=== PATIENT | female | born 1960 | race Caucasian/White ===

== ENCOUNTER 2016-03-22 12:21 | Emergency (ER) | payer BC ==
[~2016-03-22] VITALS: Ht 157.5 cm; Wt 70.2 kg
[2016-03-22 12:26] VITALS: TEMP 37; Ht 157.5 cm; Wt 70.2 kg
[2016-03-22] MEDS ORDERED: ATOR-22 PO (12:42)
[2016-03-22] MEDS ORDERED: LEVO75TA5 PO (12:42)
[2016-03-22] MEDS ORDERED: FOLI1TAB7 PO (12:42)
[2016-03-22] MEDS ORDERED: RANI150T3 PO (12:42)
[2016-03-22] MEDS ORDERED: CYAN10005 PO (12:42)
[2016-03-22] MEDS ORDERED: BIOT10TA2 PO (12:42)
[2016-03-22] MEDS ORDERED: OMEP40CA41 PO (12:42)
[2016-03-22] MEDS ORDERED: MELA1TAB5 PO (12:42)
[2016-03-22] MEDS ORDERED: BUPR100T5 PO (12:42)
--- NOTE | 2016-03-22 13:31 | EMERGENCY ROOM VISIT NOTE ---
History Report prepared by Niki: Karissa Alvarado Under the Supervision of: Dr. Edison Gee M.D. First contact with patient: 13:22 Chief Complaint: NEURO SYMPTOMS Stated Complaint: ARMS NUMB/HEAVY Nursing Triage Summary: pt co bilateral upper weakness/numbness pt states every time this happens my neck hurts also History of Present Illness The patient is a 55 year old female who presents to the Emergency Room with complaints of an episode of arm numbness occurring just prior to arrival. The patient states that her both of her arms will become numb and tingling. This then progresses to be weakness and heaviness. She states that the episode does not last long. After the episode she experienced neck pain and muscle aches. Patient has had this happened two other times, the first being in January. Patient denies rash. She notes that she does have acid reflux and that this has been acting up more recently. Source of History: patient Onset: just PODIATRY ASSISTANT Position: arm (bilateral) Quality: tingling, numbness Timing: other (episode) Associated Symptoms: + neck pain, + weakness Note: Patient is experiencing muscle aches. Review of Systems See HPI for pertinent positives & negatives. A total of 10 systems reviewed and were otherwise negative. Past Medical & Surgical Medical Problems: (1) Acid reflux Family History Cancer Diabetes mellitus Heart disease Hypertension Social History Smoking Status: Former Smoker Marital Status: Housing Status: lives with family Occupation Status: employed Current/Historical Medications Scheduled Atorvastatin (Lipitor), 20 MG PO DAILY Biotin (Biotin), 1,000 MCG PO DAILY Bupropion Hcl (Wellbutrin Sr), 1 TAB PO QAM Cyanocobalamin (Vitamin B-12), 1,000 MCG PO DAILY Folic Acid (Folvite), 1 MG PO DAILY Levothyroxine Sodium (Levothyroxine Sodium), 1 TAB PO DAILY Melatonin (Kp Melatonin), Unknown Dose PO HS Omeprazole (Prilosec), 40 MG PO DAILY Ranitidine Hcl (Zantac), 150 MG PO HS Allergies Coded Allergies: Iodinated Diagnostic Agents (Verified Allergy, Unknown, ANAPHYLAXIS, ) Iodine (Verified Allergy, Unknown, ANAPHYLAXIS, 03/22/16) Uncoded Nonscreenable Allergen (Verified Allergy, Unknown, MUSSELS- FACIAL SWELLING, 03/22/16) Physical Exam Vital Signs Date Time Temp Pulse Resp B/P Pulse Ox O2 Delivery O2 Flow Rate FiO2 03/22/16 14:55 59 22 108/73 96 Room Air 03/22/16 13:57 57 03/22/16 13:55 96 Room Air 03/22/16 13:55 Room Air 03/22/16 13:52 61 18 124/71 96 Room Air 03/22/16 12:26 37.0 121 18 120/75 97 Room Air Physical Exam GENERAL: Patient is a healthy-appearing well-nourished HEAD: Normocephalic atraumatic EYES: Ocular movements intact pupils equal and react to light OROPHARYNX mucous membranes are moist no exudates present no erythema or edema present NECK: Supple no nuchal rigidity CHEST: Good equal expansion LUNGS: Clear and equal to auscultation CARDIAC: Normal S1 and S2 ABDOMEN: Soft nontender no guarding BACK: No CVA tenderness EXTREMITIES: No pain upon palpation normal muscle strength in all groups no clubbing cyanosis or edema NEURO: Patient is following commands is answering questions appropriately. Alert and oriented x3 Cranial Nerves 2-12 grossly intact Medical Decision & Procedures ER Provider Diagnostic Interpretation: X-ray results as stated below per interpretation by me and the radiologist: CHEST ONE VIEW PORTABLE CLINICAL HISTORY: Chest pain. COMPARISON STUDY: No previous studies for comparison. FINDINGS: Lung volumes are normal. No consolidation is identified. Minimal left basilar opacity may reflect atelectasis. There is no pneumothorax or pleural effusion. There is no evidence of pulmonary edema. Cardiomediastinal silhouette is normal. There is mild S-shaped curvature of the thoracic spine. IMPRESSION: No acute cardiopulmonary findings. Electronically signed by: Kehinde Baer M.D. 03/22/2016 2:06 PM Dictated Date/Time: 03/22/2016 2:05 PM Laboratory Results 03/22/16 13:45 Red Blood Count 4.40, Mean Corpuscular Volume 93.0, Mean Corpuscular Hemoglobin 30.9, Mean Corpuscular Hemoglobin Concent 33.3, Mean Platelet Volume 9.7, Neutrophils (%) (Auto) 43.8, Lymphocytes (%) (Auto) 42.5, Monocytes (%) (Auto) 9.2, Eosinophils (%) (Auto) 4.3, Basophils (%) (Auto) 0.2, Neutrophils # (Auto) 1.96, Lymphocytes # (Auto) 1.90, Monocytes # (Auto) 0.41, Eosinophils # (Auto) 0.19, Basophils # (Auto) 0.01 03/22/16 13:45 Test 03/22/16 13:45 03/22/16 13:56 03/22/16 13:57 White Blood Count 4.47 K/uL (4.8-10.8) Red Blood Count 4.40 M/uL (4.2-5.4) Hemoglobin 13.6 g/dL (12.0-16.0) Hematocrit 40.9 % (37-47) Mean Corpuscular Volume 93.0 fL (80-100) Mean Corpuscular Hemoglobin 30.9 pg (25-34) Mean Corpuscular Hemoglobin Concent 33.3 g/dl (32-36) Platelet Count 237 K/uL (130-400) Mean Platelet Volume 9.7 fL (7.4-10.4) Neutrophils (%) (Auto) 43.8 % Lymphocytes (%) (Auto) 42.5 % Monocytes (%) (Auto) 9.2 % Eosinophils (%) (Auto) 4.3 % Basophils (%) (Auto) 0.2 % Neutrophils # (Auto) 1.96 K/uL (1.4-6.5) Lymphocytes # (Auto) 1.90 K/uL (1.2-3.4) Monocytes # (Auto) 0.41 K/uL (0.11-0.59) Eosinophils # (Auto) 0.19 K/uL (0-0.5) Basophils # (Auto) 0.01 K/uL (0-0.2) RDW Standard Deviation 45.7 fL (36.4-46.3) RDW Coefficient of Variation 13.3 % (11.5-14.5) Immature Granulocyte % (Auto) 0.0 % Immature Granulocyte # (Auto) 0.00 K/uL (0.00-0.02) Est Creatinine Clear Calc Drug Dose 52.4 ml/min Estimated GFR () 65.0 Estimated GFR (Non- 56.1 BUN/Creatinine Ratio 15.9 (10-20) Calcium Level 8.8 mg/dl (8.5-10.1) Total Bilirubin 0.8 mg/dl (0.2-1) Direct Bilirubin 0.2 mg/dl (0-0.2) Aspartate Amino Transf (AST/SGOT) 16 U/L (15-37) Alanine Aminotransferase (ALT/SGPT) 19 U/L (12-78) Alkaline Phosphatase 137 U/L (45-117) Total Creatine Kinase 156 U/L (26-192) Creatine Kinase MB 1.6 ng/ml (0.5-3.6) Creatine Kinase MB Ratio 1.0 (0-3.0) Troponin I < 0.015 ng/ml (0-0.045) Total Protein 7.5 gm/dl (6.4-8.2) Albumin 4.0 gm/dl (3.4-5.0) Lipase 207 U/L (73-393) Lyme Disease IgG Antibody NEG (NEG) Lyme Disease IgM Antibody NEG (NEG) Bedside D-Dimer 132 ng/mlFEU (0-450) Bedside Hemoglobin 14.3 g/dl (12.0-16.0) Bedside Hematocrit 42 % (37-47) Bedside Sodium 142 mEq/L (135-144) Bedside Potassium 4.1 mEq/L (3.3-5.0) Bedside Chloride 104 mEq/L (101-112) Bedside Total CO2 24 mEq/l (24-31) Anion Gap 18.0 mmol/L (16-25) Bedside Blood Urea Nitrogen 19 mg/dl (7-18) Bedside Creatinine 1.0 mg/dl (0.6-1.3) Bedside Glucose (other) 93 mg/dl (70-99) Bedside Ionized Calcium (Belle) 1.16 mmol/l (1.12-1.32) Labs reviewed by ED physician. ECG Indication: other (arm numbness) Rate (beats per minute): 57 Rhythm: sinus bradycardia Findings: no acute ischemic change, no ectopy ED Course 1325: Past medical records reviewed. The patient was evaluated in room A4. A complete history and physical examination was performed. 1455: Upon reexamination the patient is hemodynamically stable. I discussed results and treatment plan with the patient. She verbalizes agreement and understanding. The patient is ready for discharge. Medical Decision The patient is a 55 year old female who presents to the ED with complaints of arm numbness. Differential diagnosis: Etiologies such as cardiac ischemia, aortic dissection, pulmonary embolism, pneumonia, pneumothorax, musculoskeletal, infections, pericarditis, myocarditis , esophageal rupture, gastrointestinal, as well as others were entertained. This is a 55-year-old female that presents emergency department complaining of atypical symptoms. The patient reports she is had several episodes since January where her arms feel extremely heavy and she suffers from neck pain. She has no evidence of cardiac ischemia as she does not have an elevation in her troponin and her EKG is normal. In addition she has a normal d-dimer and a normal Lyme test. She has no evidence of pneumonia pneumothorax or infection on her laboratory work. Patient is pain-free at this time and I feels well enough to be discharged home for follow-up with cardiology. Patient was in agreement with the treatment plan. Impression Primary Impression: Near syncope Scribe Attestation The scribe's documentation has been prepared under my direction and personally reviewed by me in its entirety. I confirm that the note above accurately reflects all work, treatment, procedures, and medical decision making performed by me. Departure Information Dispostion Home / Self-Care Referrals No Doctor, Assigned (PCP) Forms HOME CARE DOCUMENTATION FORM, IMPORTANT VISIT INFORMATION, WORK / SCHOOL INSTRUCTIONS Patient Instructions ED Near Syncope Unkn, [facility], Syncope Causes Additional Instructions Follow up with DR Ding's office You have been examined and treated today on an emergency basis only. This is not a substitute for, or an effort to provide, complete comprehensive medical care. It is impossible to recognize and treat all injuries or illnesses in a single emergency department visit. It is therefore important that you follow up closely with Dr Iniguez. Call as soon as possible for an appointment. Thank you for your time and consideration. I look forward to speaking with you again soon. Please don't hesitate to call us if you have any questions.
[2016-03-22 13:55] VITALS: O2SAT 96
[2016-03-22 14:00] LABS: BASO % 0.2 %; BASO ABS # 0.01 K/uL (0-0.2); COMPLETE YES; EOS % 4.3 %; HEMATOCRIT 40.9 % (37-47); LYMPH % 42.5 %; MEAN CORPUSCULAR HEMOGLOBIN 30.9 pg (25-34); MEAN CORPUSCULAR HGB CONC 33.3 g/dl (32-36); MEAN PLATELET VOLUME 9.7 fL (7.4-10.4); MONO % 9.2 %; NEUT % 43.8 %; PLATELET COUNT 237 K/uL (130-400); WHITE BLOOD COUNT 4.47 K/uL (4.8-10.8)
--- NOTE | 2016-03-22 14:07 | DIAGNOSTIC IMAGING REPORT ---
CHEST ONE VIEW PORTABLE CLINICAL HISTORY: Chest pain. COMPARISON STUDY: No previous studies for comparison. FINDINGS: Lung volumes are normal. No consolidation is identified. Minimal left basilar opacity may reflect atelectasis. There is no pneumothorax or pleural effusion. There is no evidence of pulmonary edema. Cardiomediastinal silhouette is normal. There is mild S-shaped curvature of the thoracic spine. IMPRESSION: No acute cardiopulmonary findings. Electronically signed by: Kehinde Baer M.D. 03/22/2016 2:06 PM Dictated Date/Time: 03/22/2016 2:05 PM
[2016-03-22 14:17] LABS: ALT/SGPT 19 U/L (12-78); AST/SGOT 16 U/L (15-37); BLOOD UREA NITROGEN 17 mg/dl (7-18); BUN/CREATININE RATIO 15.9 (10-20); CALCIUM 8.8 mg/dl (8.5-10.1); CARBON DIOXIDE 28 mmol/L (21-32); CHLORIDE 108 mmol/L (98-107); GLUCOSE 88 mg/dl (70-99); POTASSIUM 4.1 mmol/L (3.5-5.1); SODIUM 145 mmol/L (136-145)
[2016-03-22 14:23] LABS: ALKALINE PHOSPHATASE 137 U/L (45-117)
[2016-03-22 14:32] LABS: ISTAT HEMOGLOBIN 14.3 g/dl (12.0-16.0); ISTAT IONIZED CALCIUM 1.16 mmol/l (1.12-1.32)
[2016-03-22 14:54] LABS: LYME DISEASE AB IGG NEG (NEG); LYME DISEASE AB IGM NEG (NEG)
[2016-03-22 14:55] VITALS: BP 108/73; PULSE 59; O2SAT 96
== END 2016-03-22 15:05 | disposition home or self-care (01) ==
LOC: C.EDB 12:22 → C.EDA 15:05
DX: R55 Syncope and collapse (principal); K21.9 Gastro-esophageal reflux disease without esophagitis; Z79.899 Other long term (current) drug therapy

== ENCOUNTER → 2017-02-16 | Outpatient (CLI) | payer BC ==
[~2017-02-16] MED LIST: ATOR-22 PO; BIOT10TA2 PO; BUPR100T5 PO; CYAN10005 PO; FOLI1TAB8 PO; LEVO75TA5 PO; MELA1TAB5 PO; OMEP40CA41 PO; RANI150T3 PO
[2017-02-16 14:19] LABS: ALBUMIN 3.9 gm/dl (3.4-5.0); ALKALINE PHOSPHATASE 98 U/L (45-117); ALT/SGPT 23 U/L (12-78); AST/SGOT 16 U/L (15-37); BLOOD UREA NITROGEN 29 mg/dl (7-18); CALCIUM 8.9 mg/dl (8.5-10.1); CARBON DIOXIDE 25 mmol/L (21-32); CHOLESTEROL 135 mg/dl (0-200); CREATININE 1.05 mg/dl (0.60-1.20); GLUCOSE,FASTING 98 mg/dl (70-99); LDL CHOLESTEROL CALCULATED 71 mg/dl; POTASSIUM 3.8 mmol/L (3.5-5.1); SODIUM 139 mmol/L (136-145); TOTAL PROTEIN 7.4 gm/dl (6.4-8.2)
== END | disposition home or self-care (01) ==
LOC: C.LABPBG 08:26
PROVIDERS: ATTEND Physician Assistant
DX: Z00.00 Encounter for general adult medical examination without abnormal findings (principal); E03.9 Hypothyroidism, unspecified; E78.5 Hyperlipidemia, unspecified

== ENCOUNTER 2024-12-16 14:22 | Inpatient (IN) ==
--- NOTE | 2024-12-16 15:04 | Emergency Department Note ---
Impression & Plan Acute pyelitis, Lower urinary tract symptoms (LUTS), Acute flank pain ED Provider Note NAME: NAVIN DURANT AGE: 64 SEX: F : 1960 ARRIVES VIA: Walk-In INFORMANT: Patient, ED PROVIDER(S): Khari Dove DO CHIEF COMPLAINT: urinary symptoms, flank pain HPI: This is a 64-year-old female with the PMHx of hypertension, hyperlipidemia, hypothyroidism, anxiety, esophageal reflux, and osteoarthritis presenting to [facility] for further evaluation of ongoing urinary symptoms. Patient is accompanied by her who provide additional history. Patient states that she has had ongoing urinary symptoms despite 3 rounds of antibiotics. She is scheduled for a cystoscopy with urology this week. Patient reports over the last day or so she has had worsening left-sided flank pain. Patient states that her urine cultures have not grown any significant bacteria. They deny fever or chills. No cough or congestion. Denies chest pain or palpitations. No shortness of breath. They deny abdominal pain, nausea and vomiting. No recent changes in bowel movements. Patient denies recent changes in medications or OTC supplements. Patient offers no other complaints, today. ADDITIONAL HISTORY OBTAINED: Per HPI Chronic Medical/Social Conditions Affecting Care: Per HPI PAST MEDICAL HISTORY: See Below PAST SURGICAL HISTORY: See Below FAMILY HISTORY: See Below SOCIAL HISTORY: See Below HOME MEDICATIONS: See Below ALLERGIES: See Below VITALS: See Below PHYSICAL EXAMINATION: GENERAL: Sitting up in bed, alert, well appearing, well nourished, no distress, non-toxic EYE EXAM: normal conjunctiva. OROPHARYNX: no exudate, no erythema, lips, buccal mucosa, and tongue normal and mucous membranes are dry NECK: supple, no nuchal rigidity, no adenopathy, non-tender LUNGS: Clear to auscultation. Normal chest wall mechanics HEART: no murmurs, regular rate, regular rhythm ABDOMEN: abdomen soft,TTP in the LUQ, no masses, no rebound or guarding. BACK: Back is symmetrical on inspection and there is no deformity, no midline tenderness. L CVA tenderness. SKIN: no rashes and no bruising UPPER EXTREMITIES: upper extremities are grossly normal. LOWER EXTREMITIES: No pitting edema. NEURO EXAM: Normal sensorium, GCS 15, normal speech, no gross weakness of arms, no gross weakness of legs. MEDICAL DECISION MAKING: Differential diagnoses includes but not limited to acute cystitis, pyelonephritis, nephrolithiasis, hydroureteronephrosis, malignancy, interstitial nephritis In summary, this is a 64 year old female who presented with urinary symptoms. Differential as above. Nursing notes and pertinent past medical records reviewed. Vital signs reviewed and the patient is afebrile and HDS. History and presentation revealed ongoing UTI symptoms. Recent antibiotics for 3 different rounds with ongoing symptoms. She now has L sided flank pain. Physical examination revealed as above. As a result of my initial evaluation, IV access was established and the patient was placed on CCRM. Therapeutics ordered include IVFR and Toradol. I discussed further with the patient regarding her contrast allergy. She states this was from the iodine and she had 3 hives total. She states that she has been able to tolerate contrast in the past without any issue. Patient is comfortable with IV Benadryl prior to CT scan and proceeding with contrast study. She is felt to be very low risk for anaphylaxis secondary to contrast media. Diagnostics interpreted by me include EKG and cardiac monitoring as listed below: -Cardiac Monitoring: An order was placed for continuous cardiac monitoring. The monitor shows a rate of 50-70s with regular rhythm. -ECG: Normal sinus rhythm at a ventricular rate of [address] segment changes to suggest STEMI. Patient completed laboratory studies and imaging. Results independently interpreted by me are no leukocytosis or anemia. There is no significant electrolyte derangements or significant kidney dysfunction from baseline. Slight increased BUN:Cr. No changes in LFTs. Procalcitonin is normal. Urinalysis shows leukocyte esterase and pyuria. No bacteriuria. Patient does not have nitrates. [place] less likely to be a UTI. Would also consider interstitial nephritis. The patient was managed with IV fluid resuscitation and Toradol. Patient CT did result in the emergency department showing possible infection of the ureter. Feel are that the patient has failed multiple courses of antibiotics as an outpatient at this point. Will provide IV ceftriaxone and admit the patient to the hospital. She required additional pain medications including morphine while in the ED. Ultimately, the decision was made to admit the patient for bilateral pyelitis. I discussed the case with the hospitalist service via telephone/TigerText and they are agreeable to admit the patient to their services. Based on the above, including the patient's age, coexisting illnesses, labs, imaging, and exam findings the decision to treat as an inpatient. I discussed the patient with the hospitalist team who recommended admission to their services. They received the medications, treatments, interventions indicated above and their condition remained stable. I discussed my findings with the patient and their family and they understand and agree with the treatment plan. All patient / family questions were answered to their satisfaction. Consults/Care Managements Discussions: Per MDM ER treatment provided: See above Procedures:none Critical Care: None The chart was completed utilizing [employer] voice recognition software. Grammatical errors, random word insertions, pronoun errors, and incomplete sentences are an occasional consequence of this system due to software limitations, ambient noise, and hardware issues. Any formal questions or concerns about the content, text, or information contained within the body of this dictation should be directly addressed to the physician for clarification. Past Med/Surg History Problem List (Updated 12/17/24 @ 00:15 by Khari Dove DO) Acute flank pain (Acute) Lower urinary tract symptoms (LUTS) (Acute) Acute pyelitis (Acute) Recurrent UTI (urinary tract infection) Ureteritis due to infection Hematuria Osteoarthritis Rupture of right biceps tendon Rupture of right rotator cuff Bilateral occipital neuralgia History of stress fracture (~03/17/21) Stress fracture of tibia Spinal stenosis of cervical region with radiculopathy Degenerative disc disease, cervical Prediabetes Chronic constipation Gastritis GERD (gastroesophageal reflux disease) Rosacea Degenerative joint disease (DJD) of lumbar spine Spondylolisthesis of lumbar region Acne Dyslipidemia Hypothyroidism Anxiety disorder Medical History (Updated 12/17/24 @ 00:15 by Khari Dove DO) Hydradenitis Fecal incontinence Degenerative joint disease (DJD) of lumbar spine Rosacea History of COVID-29 MAR 2020> HEADACHE, LOSS OF SMELL, ALL OVER PAIN > NOT HOSPITALIZED > WAS NOT TESTED, TESTED POSITIVE, SAID TO ASSUME PT WAS POSITIVE DVT (deep venous thrombosis) 1983 > FROM SNAKE BITE > LEG Surgical History History of tooth extraction History of colonoscopy H/O lymph node excision AGE 14 LEFT SIDE NECK History of oophorectomy, unilateral H/O hysterectomy with unilateral oophorectomy S/P breast biopsy, left benign S/P cholecystectomy H/O ovarian cystectomy Family History Father Myocardial infarction, Onset Age: 57 Coronary heart disease Mother Hypertension Uncle Colorectal cancer Grandfather (Paternal) Stomach cancer Grandfather (Maternal) Bladder cancer Aunt Breast cancer Denies family history of Ovarian cancer Prostate cancer Social History Smoking Status: Never smoker Tobacco Type: Cigarettes Age Started Using Tobacco: 29; Age Quit Using Tobacco: 51; packs per day: 1; Second Hand Exposure: No; Do You Dip or Chew Tobacco: No; Hx Alcohol Use: Yes Alcohol type: beer Alcohol Intake Frequency: Monthly or Less Hx Substance Use: No Preferred Language: Sami Communication Ability: Effective Visual Impairment: No Limitations Hearing Ability: Normal First Aid Director Required: No Beliefs That Will Affect Care: None marital status: Current Living Situation: Spouse current occupational status: retired How many Children do You have: 2 How many Children do You have Comment: 2 boys Feels Safe at Home: Yes Childhood Exposure to Second-Hand Smoke: No Diet: low carbohydrate Diet Comment: low carb caffeine: Yes during the past year weight has: remained stable Dental Care, Regularly: Yes Physical Activity Frequency: 3-4 Times per Week Physical Activity Frequency Comment: walking Seatbelt Use: always Sunscreen Use: Yes Assistive Devices: Glasses Allergies Allergies Allergy/AdvReac Type Severity Reaction Status Date / Time Tetanus Vaccines and Toxoid Allergy Severe Anaphylaxis Verified 12/16/24 16:54 Iodinated Contrast Media Allergy Unknown ANAPHYLAXIS Verified 12/16/24 16:54 iodine Allergy Unknown ANAPHYLAXIS Verified 12/16/24 16:54 clams Allergy Hives Verified 12/16/24 16:54 Home Meds Home Medications Medication Instructions Recorded Confirmed cetirizine 10 mg tablet 10 mg PO QAM 12/05/20 12/16/24 escitalopram oxalate 10 mg tablet 10 mg PO QPM 12/16/24 12/16/24 famotidine 20 mg tablet 20 mg PO QPM 12/16/24 12/16/24 linaclotide 72 mcg capsule 72 mcg PO QPM 12/16/24 12/16/24 (Linzess) Previous Rx's Medication Instructions Recorded metformin 500 mg tablet,extended 500 mg PO BID #180 tabs 02/18/24 release 24 hr clindamycin phosphate 1 % topical 1 applic topical BID PRN lesion 05/11/24 gel #60 grams folic acid 1 mg tablet 1 mg PO QAM #90 tabs 07/04/24 pantoprazole 40 mg tablet,delayed 40 mg PO DAILY GERD #90 tabs 07/13/24 release (Protonix) levothyroxine 88 mcg tablet 88 mcg PO DAILY #90 tabs 10/17/24 atorvastatin 20 mg tablet 20 mg PO QPM #90 tabs 11/10/24 spironolactone 100 mg tablet 100 mg PO DAILY #90 tabs 12/15/24 Results & Data (ED) Vital Signs Vital Signs - 24 hr 12/16/24 14:24 12/16/24 15:02 12/16/24 15:30 Temperature 36.4 C L Temperature Source Temporal Artery Scan Pulse Rate 81 81 Pulse Rate [Apical] 60 Pulse Rate from SpO2 Sensor Pulse Rhythm Regular Pulse Rhythm [Apical] Pulse Strength [Apical] Respiratory Rate 18 18 18 Respiratory Effort / Characteristics Non-Labored Spontaneous Respiratory Depth Normal Blood Pressure 127/78 Blood Pressure [Right Arm] 125/78 Blood Pressure Mean 94 Blood Pressure Mean [Right Arm] 93 Blood Pressure Position [Right Arm] Sitting Pulse Oximetry 97 97 99 Oxygen Delivery Method Room Air Room Air Room Air Sepsis Recent Fever Within 48 Hours No Sepsis New/Unexplained Change in Mental Status N/A Sepsis Action Taken by Nursing No Action Required 12/16/24 15:46 12/16/24 17:00 12/16/24 18:00 Temperature Temperature Source Pulse Rate 64 Pulse Rate [Apical] 58 L Pulse Rate from SpO2 Sensor Pulse Rhythm Pulse Rhythm [Apical] Pulse Strength [Apical] Respiratory Rate 18 Respiratory Effort / Characteristics Non-Labored Spontaneous Respiratory Depth Normal Blood Pressure 112/67 Blood Pressure [Right Arm] 115/81 Blood Pressure Mean 82 Blood Pressure Mean [Right Arm] 92 Blood Pressure Position [Right Arm] Lying Pulse Oximetry 99 Oxygen Delivery Method Room Air Sepsis Recent Fever Within 48 Hours Sepsis New/Unexplained Change in Mental Status Sepsis Action Taken by Nursing 12/16/24 18:00 12/16/24 18:00 12/16/24 18:00 Temperature Temperature Source Pulse Rate Pulse Rate [Apical] Pulse Rate from SpO2 Sensor Pulse Rhythm Pulse Rhythm [Apical] Pulse Strength [Apical] Respiratory Rate Respiratory Effort / Characteristics Respiratory Depth Blood Pressure 112/67 112/67 112/67 Blood Pressure [Right Arm] Blood Pressure Mean 82 82 82 Blood Pressure Mean [Right Arm] Blood Pressure Position [Right Arm] Pulse Oximetry Oxygen Delivery Method Sepsis Recent Fever Within 48 Hours Sepsis New/Unexplained Change in Mental Status Sepsis Action Taken by Nursing 12/16/24 18:00 12/16/24 18:12 12/16/24 18:21 Temperature Temperature Source Pulse Rate 60 60 64 Pulse Rate [Apical] Pulse Rate from SpO2 Sensor 59 L 59 L 64 Pulse Rhythm Pulse Rhythm [Apical] Pulse Strength [Apical] Respiratory Rate 12 16 21 Respiratory Effort / Characteristics Respiratory Depth Blood Pressure Blood Pressure [Right Arm] Blood Pressure Mean Blood Pressure Mean [Right Arm] Blood Pressure Position [Right Arm] Pulse Oximetry 98 98 96 Oxygen Delivery Method Sepsis Recent Fever Within 48 Hours Sepsis New/Unexplained Change in Mental Status Sepsis Action Taken by Nursing 12/16/24 18:30 12/16/24 18:30 12/16/24 18:30 Temperature Temperature Source Pulse Rate 60 Pulse Rate [Apical] Pulse Rate from SpO2 Sensor 59 L Pulse Rhythm Pulse Rhythm [Apical] Pulse Strength [Apical] Respiratory Rate 12 Respiratory Effort / Characteristics Respiratory Depth Blood Pressure 114/68 114/68 Blood Pressure [Right Arm] Blood Pressure Mean 85 85 Blood Pressure Mean [Right Arm] Blood Pressure Position [Right Arm] Pulse Oximetry 97 Oxygen Delivery Method Sepsis Recent Fever Within 48 Hours Sepsis New/Unexplained Change in Mental Status Sepsis Action Taken by Nursing 12/16/24 18:30 12/16/24 18:30 12/16/24 18:33 Temperature Temperature Source Pulse Rate Pulse Rate [Apical] 61 Pulse Rate from SpO2 Sensor Pulse Rhythm Pulse Rhythm [Apical] Pulse Strength [Apical] Respiratory Rate 18 Respiratory Effort / Characteristics Non-Labored Spontaneous Respiratory Depth Normal Blood Pressure 114/68 114/68 Blood Pressure [Right Arm] 114/68 Blood Pressure Mean 85 85 Blood Pressure Mean [Right Arm] 83 Blood Pressure Position [Right Arm] Lying Pulse Oximetry 99 Oxygen Delivery Method Room Air Sepsis Recent Fever Within 48 Hours Sepsis New/Unexplained Change in Mental Status Sepsis Action Taken by Nursing 12/16/24 18:42 12/16/24 18:51 12/16/24 19:00 Temperature Temperature Source Pulse Rate 59 L 59 L Pulse Rate [Apical] Pulse Rate from SpO2 Sensor 59 L 59 L Pulse Rhythm Pulse Rhythm [Apical] Pulse Strength [Apical] Respiratory Rate 23 34 H Respiratory Effort / Characteristics Respiratory Depth Blood Pressure 115/70 Blood Pressure [Right Arm] Blood Pressure Mean 87 Blood Pressure Mean [Right Arm] Blood Pressure Position [Right Arm] Pulse Oximetry 97 95 Oxygen Delivery Method Sepsis Recent Fever Within 48 Hours Sepsis New/Unexplained Change in Mental Status Sepsis Action Taken by Nursing 12/16/24 19:00 12/16/24 19:00 12/16/24 19:00 Temperature Temperature Source Pulse Rate Pulse Rate [Apical] Pulse Rate from SpO2 Sensor Pulse Rhythm Pulse Rhythm [Apical] Pulse Strength [Apical] Respiratory Rate Respiratory Effort / Characteristics Respiratory Depth Blood Pressure 115/70 115/70 115/70 Blood Pressure [Right Arm] Blood Pressure Mean 87 87 87 Blood Pressure Mean [Right Arm] Blood Pressure Position [Right Arm] Pulse Oximetry Oxygen Delivery Method Sepsis Recent Fever Within 48 Hours Sepsis New/Unexplained Change in Mental Status Sepsis Action Taken by Nursing 12/16/24 19:00 12/16/24 19:12 12/16/24 19:21 Temperature Temperature Source Pulse Rate 61 62 58 L Pulse Rate [Apical] Pulse Rate from SpO2 Sensor 61 63 59 L Pulse Rhythm Pulse Rhythm [Apical] Pulse Strength [Apical] Respiratory Rate 13 23 11 L Respiratory Effort / Characteristics Respiratory Depth Blood Pressure Blood Pressure [Right Arm] Blood Pressure Mean Blood Pressure Mean [Right Arm] Blood Pressure Position [Right Arm] Pulse Oximetry 95 97 94 Oxygen Delivery Method Sepsis Recent Fever Within 48 Hours Sepsis New/Unexplained Change in Mental Status Sepsis Action Taken by Nursing 12/16/24 19:30 12/16/24 19:30 12/16/24 19:30 Temperature Temperature Source Pulse Rate 58 L Pulse Rate [Apical] Pulse Rate from SpO2 Sensor 59 L Pulse Rhythm Pulse Rhythm [Apical] Pulse Strength [Apical] Respiratory Rate 15 Respiratory Effort / Characteristics Respiratory Depth Blood Pressure 122/85 122/85 Blood Pressure [Right Arm] Blood Pressure Mean 101 101 Blood Pressure Mean [Right Arm] Blood Pressure Position [Right Arm] Pulse Oximetry 97 Oxygen Delivery Method Sepsis Recent Fever Within 48 Hours Sepsis New/Unexplained Change in Mental Status Sepsis Action Taken by Nursing 12/16/24 19:30 12/16/24 19:30 12/16/24 19:30 Temperature Temperature Source Pulse Rate Pulse Rate [Apical] Pulse Rate from SpO2 Sensor Pulse Rhythm Pulse Rhythm [Apical] Pulse Strength [Apical] Respiratory Rate Respiratory Effort / Characteristics Respiratory Depth Blood Pressure 122/85 122/85 122/85 Blood Pressure [Right Arm] Blood Pressure Mean 101 101 101 Blood Pressure Mean [Right Arm] Blood Pressure Position [Right Arm] Pulse Oximetry Oxygen Delivery Method Sepsis Recent Fever Within 48 Hours Sepsis New/Unexplained Change in Mental Status Sepsis Action Taken by Nursing 12/16/24 19:42 12/16/24 19:47 12/16/24 19:51 Temperature Temperature Source Pulse Rate 61 63 64 Pulse Rate [Apical] Pulse Rate from SpO2 Sensor 62 64 Pulse Rhythm Pulse Rhythm [Apical] Pulse Strength [Apical] Respiratory Rate 13 28 H Respiratory Effort / Characteristics Respiratory Depth Blood Pressure Blood Pressure [Right Arm] Blood Pressure Mean Blood Pressure Mean [Right Arm] Blood Pressure Position [Right Arm] Pulse Oximetry 96 96 Oxygen Delivery Method Sepsis Recent Fever Within 48 Hours Sepsis New/Unexplained Change in Mental Status Sepsis Action Taken by Nursing 12/16/24 20:00 12/16/24 20:00 12/16/24 20:00 Temperature Temperature Source Pulse Rate 61 Pulse Rate [Apical] 60 Pulse Rate from SpO2 Sensor 60 Pulse Rhythm Pulse Rhythm [Apical] Regular Pulse Strength [Apical] Normal Respiratory Rate 16 19 Respiratory Effort / Characteristics Non-Labored Spontaneous Respiratory Depth Normal Blood Pressure 112/74 Blood Pressure [Right Arm] 112/74 Blood Pressure Mean 92 Blood Pressure Mean [Right Arm] 86 Blood Pressure Position [Right Arm] Lying Pulse Oximetry 95 97 Oxygen Delivery Method Room Air Sepsis Recent Fever Within 48 Hours Sepsis New/Unexplained Change in Mental Status Sepsis Action Taken by Nursing 12/16/24 20:00 12/16/24 20:00 12/16/24 20:00 Temperature Temperature Source Pulse Rate Pulse Rate [Apical] Pulse Rate from SpO2 Sensor Pulse Rhythm Pulse Rhythm [Apical] Pulse Strength [Apical] Respiratory Rate Respiratory Effort / Characteristics Respiratory Depth Blood Pressure 112/74 112/74 112/74 Blood Pressure [Right Arm] Blood Pressure Mean 92 92 92 Blood Pressure Mean [Right Arm] Blood Pressure Position [Right Arm] Pulse Oximetry Oxygen Delivery Method Sepsis Recent Fever Within 48 Hours Sepsis New/Unexplained Change in Mental Status Sepsis Action Taken by Nursing 12/16/24 20:00 12/16/24 20:12 12/16/24 20:21 Temperature Temperature Source Pulse Rate 64 65 Pulse Rate [Apical] Pulse Rate from SpO2 Sensor 63 66 Pulse Rhythm Pulse Rhythm [Apical] Pulse Strength [Apical] Respiratory Rate 21 24 Respiratory Effort / Characteristics Respiratory Depth Blood Pressure 112/74 Blood Pressure [Right Arm] Blood Pressure Mean 92 Blood Pressure Mean [Right Arm] Blood Pressure Position [Right Arm] Pulse Oximetry 99 96 Oxygen Delivery Method Sepsis Recent Fever Within 48 Hours Sepsis New/Unexplained Change in Mental Status Sepsis Action Taken by Nursing Laboratory Data 12/16/24 15:06 12/16/24 15:06 Lab Results 12/16/24 12/16/24 Range/Units 15:00 15:06 WBC 6.75 (4.8-10.8) K/ul RBC 4.52 (4.20-5.40) M/uL Hgb 14.2 (12.0-16.0) g/dl Hct 40.7 (37.0-47.0) % MCV 90.0 (80.0-100.0) fL MCH 31.4 (25.0-34.0) pg MCHC 34.9 (32.0-36.0) g/dL RDW Std Deviation 42.2 (36.4-46.3) fL RDW Coeff of Danilo 12.8 (11.5-14.5) % Plt Count 249 (130-400) K/uL MPV 9.7 (9.4-12.4) fL Immature Gran % (Auto) 0.1 % Neut % (Auto) 54.8 % Lymph % (Auto) 30.7 % [place] % (Auto) 9.8 % Eos % (Auto) 3.9 % Baso % (Auto) 0.7 % Neut # (Auto) 3.70 (1.40-6.50) K/uL Lymph # (Auto) 2.07 (1.20-3.40) K/uL [place] # (Auto) 0.66 H (0.11-0.59) K/uL Eos # (Auto) 0.26 (0.00-0.50) K/uL Baso # (Auto) 0.05 (0.00-0.20) K/uL Immature Gran # (Auto) 0.01 (0.01-0.20) K/uL Sodium 137 (136-145) mmol/L Potassium 4.1 (3.5-5.1) mmol/L Chloride 104 (98-107) mmol/L Carbon Dioxide 24 (21-32) mmol/L Anion Gap 9 (3-11) BUN 25 H (6-23) mg/dl Creatinine 0.92 (0.6-1.2) mg/dl Est Cr Clr Drug Dosing 53.0 ml/min eGFR 69.10 BUN/Creatinine Ratio 27.2 H (10-20) Glucose 94 (70-99(Fasting)) mg/dl Lactate 1.0 (0.4-2.0) mmol/L Calcium 9.8 (8.6-10.3) mg/dl Total Bilirubin 0.8 (0.2-1.0) mg/dl AST 17 (13-39) U/L ALT 9 (7-52) U/L Alkaline Phosphatase 91 (34-104) U/L Total Protein 7.7 (6.0-8.3) gm/dl Albumin 4.6 (3.4-5.0) gm/dl Globulin 3.1 (2.5-4.0) gm/dl Albumin/Globulin Ratio 1.5 (0.9-2) Lipase 42 (11-82) U/L Procalcitonin < 0.02 (0-0.5) ng/ml Urine Color Yellow Urine Appearance Clear (Clear) Urine pH 6.0 (4.5-7.5) Ur Specific [place] 1.021 (1.000-1.030) Urine Protein Negative (Negative) Urine Glucose (UA) Negative (Negative) Urine Ketones Negative (Negative) Urine Blood 1+ H (Negative) Urine Nitrite Negative (Negative) Urine Bilirubin Negative (Negative) Urine Urobilinogen Negative (Negative) Ur Leukocyte Esterase 3+ H (Negative) Urine WBC (Auto) 21-50 H (0-5) /hpf Urine RBC (Auto) 6-10 H (0-2) /hpf U Hyaline Cast (Auto) 0-2 (0-2) /lpf U Epithel Cells (Auto) 0-2 (0-2) /hpf Urine Bacteria (Auto) None Seen (None Seen) Urine Comment Administered Medications Atorvastatin Calcium (Atorvastatin 20 Mg Tab) 20 mg PO QPM FERNY Stop: 01/15/25 21:53 Last Admin: 12/16/24 22:47 Dose: 20 mg Documented By: RAMON Escitalopram Oxalate (Escitalopram Oxalate 10 Mg Tab) 10 mg PO QPM FERNY Stop: 01/15/25 21:53 Last Admin: 12/16/24 22:47 Dose: 10 mg Documented By: RAMON Famotidine (Famotidine 20 Mg Tab) 20 mg PO QPM FERNY Stop: 01/15/25 21:53 Last Admin: 12/16/24 22:47 Dose: 20 mg Documented By: RAMON Lactated Ringer's (Lr) 1,000 mls @ 80 mls/hr IV .[id number] FERNY Stop: 12/17/24 21:29 Last Admin: 12/16/24 20:47 Dose: 80 mls/hr Documented By: SEMAJ Linaclotide (Linaclotide 72 Mcg Capsule) 72 mcg PO QPM FERNY Stop: 01/15/25 21:53 Last Admin: 12/16/24 22:47 Dose: Not Given Documented By: RAMON Discontinued Medications Acetaminophen (Acetaminophen 325 Mg Tab) 650 mg PO NOW STA Stop: 12/16/24 20:24 Last Admin: 12/16/24 20:47 Dose: 650 mg Documented By: SEMAJ Diphenhydramine HCl (Diphenhydramine 50 Mg/Ml Vial) 25 mg IV NOW STA Stop: 12/16/24 14:49 Last Admin: 12/16/24 15:13 Dose: 25 mg Documented By: MARILYN Parenteral Electrolytes (Plasma-Lyte A Ph 7.4) 1,000 mls @ 999 mls/hr IV .Q1H1M ONE Stop: 12/16/24 15:44 Last Infusion: 12/16/24 16:53 Dose: Infused Documented By: Admin: 12/16/24 15:18 Dose: 999 mls/hr Documented By: MARILYN Ceftriaxone Sodium (Rocephin) 1,000 mg in 50 mls @ 100 mls/hr IV NOW STA Stop: 12/16/24 19:23 Last Infusion: 12/16/24 20:13 Dose: Infused Documented By: [facility] Admin: 12/16/24 19:08 Dose: 100 mls/hr Documented By: MOHIT Ioversol (Optiray 320 100ml) 90 ml IV ONCE ONE Stop: 12/16/24 16:28 Last Admin: 12/16/24 16:27 Dose: 90 ml Documented By: MAGED Ketorolac Tromethamine (Ketorolac Tromethamine 15 Mg/Ml Vial) 15 mg IV NOW STA Stop: 12/16/24 14:45 Last Admin: 12/16/24 15:13 Dose: 15 mg Documented By: MARILYN Ketorolac Tromethamine (Ketorolac Tromethamine 15 Mg/Ml Vial) 15 mg IV NOW ONE Stop: 12/16/24 23:20 Last Admin: 12/16/24 23:25 Dose: 15 mg Documented By: RAMON Ketorolac Tromethamine (Ketorolac Tromethamine 15 Mg/Ml Vial) Confirm Administered Dose 15 mg .ROUTE .STK-MED ONE Stop: 12/16/24 23:24 Last Admin: 12/16/24 23:39 Dose: Not Given Documented By: RAMON Morphine Sulfate (Morphine Sulfate 4 Mg/Ml 1 Ml Carp\Vial) 4 mg IV NOW STA Stop: 12/16/24 18:36 Last Admin: 12/16/24 18:38 Dose: 4 mg Documented By: CC Imaging Data Radiologist's Impression: Abdomen/Pelvis CT 12/16/24 14:48 EXAM: CT Abdomen and Pelvis With Intravenous Contrast INDICATION: Urinary tract infection. Severe left flank pain. TECHNIQUE: Axial computed tomography images of the abdomen and pelvis with intravenous contrast. Sagittal and coronal reformatted images were created and reviewed. This CT exam was performed using one or more of the following dose reduction techniques: automated exposure control, adjustment of the mA and/or kV according to patient size, and/or use of iterative reconstruction technique. CONTRAST: 90 ml of Optiray 320 was administered intravenously. COMPARISON: 10/14/2024 FINDINGS: Limitations: None. Lung bases: No abnormality noted. Pleural space: No visualized pleural effusion or pneumothorax. Heart: No abnormality noted. Mediastinum: No abnormality noted. ABDOMEN: Liver: No abnormality noted. Gallbladder and bile ducts: Cholecystectomy. No ductal dilation or stone noted. Mild intrahepatic biliary dilatation thought to be within normal limits postcholecystectomy. Liver otherwise is unremarkable. Pancreas: Homogeneous enhancement. No mass, inflammation or ductal dilation. Spleen: No acute abnormality noted. Adrenals: No acute abnormality noted. Kidneys and ureters: Slightly small right kidney is unchanged. There is homogeneous and symmetrical enhancement. There is mild bilateral ureteral urothelial thickening. No stones. No urinary gas. No perinephric fluid. Stomach and bowel: Moderate to large amounts of stool in the redundant colon with diffuse diverticulosis. No diverticulitis. No obstruction. PELVIS: Appendix: No findings to suggest acute appendicitis. Bladder: No filling defects to suggest mass or large stone. No inflammation. Reproductive: Hysterectomy. ABDOMEN and PELVIS: Intraperitoneal space: No free air. No significant fluid collection. Bones/joints: No acute changes. Soft tissues: No acute abnormality noted. Vasculature: Atherosclerotic calcification of the aorta and branches. No aneurysm. Lymph nodes: No pathologically enlarged lymph nodes. IMPRESSION: 1. Mild urothelial thickening of each ureter suspicious for pyelitis. Correlate with urinalysis. No renal abscess, perinephric fluid or cystitis. No stone. 2. Moderate amounts of stool throughout the colon and diverticulosis. No diverticulitis. ACT 112: N/A Electronically signed by Lima Clark 12-16-2024 6:39 PM Discharge Plan Visit Data Chief Complaint: Urinary Symptoms Stated Complaint: PAIN IN L SIDE, HX OF UTI ED Provider: Khari Dove Discharge Problem: Acute pyelitis, Lower urinary tract symptoms (LUTS), Acute flank pain Patient Disposition: Admitted As Inpatient Condition: Fair Discharge Instructions Interventions: ED Discharge Assessment Last Done: 12/16/24 21:35
[2024-12-16] MEDS: KETOROLAC TROMETHAMINE 15 MG/ML VIAL IV STA (15:13)
[2024-12-16] MEDS: diphenhydrAMINE 50 MG/ML VIAL IV STA (15:13)
[2024-12-16] MEDS: PLASMA-LYTE A 1,000 ML IV ONE (15:18)
[2024-12-16 15:29] LABS: Hematocrit (blood only) 40.7 % (37.0-47.0); Hemoglobin 14.2 g/dl (12.0-16.0); Immature Granulocytes # (auto) 0.01 K/uL (0.01-0.20); Immature Granulocytes % (auto) 0.1 %; Mean Corpuscular Hemoglobin 31.4 pg (25.0-34.0); Mean Corpuscular Volume 90.0 fL (80.0-100.0); Platelet Count 249 K/uL (130-400); RDW Standard Deviation 42.2 fL (36.4-46.3); Red Blood Count 4.52 M/uL (4.20-5.40); White Blood Count 6.75 K/ul (4.8-10.8)
[2024-12-16 15:32] LABS: Appearance Urine Clear (Clear); Bacteria Urine Automated None Seen (None Seen); Cast Urine Automated 0-2 /lpf (0-2); Epithelial Cell Urine Auto 0-2 /hpf (0-2); Glucose Urine UA Negative (Negative); WBC Urine Automated 21-50 /hpf (0-5)
[2024-12-16 15:50] LABS: Alanine Aminotransferase 9.0 U/L (7-52); Albumin Globulin Ratio 1.5 (0.9-2); Albumin Level 4.6 gm/dl (3.4-5.0); Alkaline Phosphatase 91.0 U/L (34-104); Anion Gap 9.0 (3-11); Bilirubin,Total 0.8 mg/dl (0.2-1.0); Blood Urea Nitrogen 25.0 mg/dl (6-23); Calcium 9.8 mg/dl (8.6-10.3); Carbon Dioxide 24.0 mmol/L (21-32); Chloride 104.0 mmol/L (98-107); Creatinine Clr Calc Pharmacy 53.0 ml/min; Globulin 3.1 gm/dl (2.5-4.0); Glucose 94.0 mg/dl (70-99(Fasting)); Lipase 42.0 U/L (11-82); Potassium 4.1 mmol/L (3.5-5.1); Sodium 137.0 mmol/L (136-145); Total Protein 7.7 gm/dl (6.0-8.3)
[2024-12-16] MEDS: OPTIRAY 320 100ml IV ONE (16:27)
[2024-12-16] MEDS: MoRPHine SULFATE 4 MG/ML 1 ML CARP\\VIAL IV STA (18:38)
--- NOTE | 2024-12-16 18:39 | CT Scan Report ---
EXAM: CT Abdomen and Pelvis With Intravenous Contrast INDICATION: Urinary tract infection. Severe left flank pain. TECHNIQUE: Axial computed tomography images of the abdomen and pelvis with intravenous contrast. Sagittal and coronal reformatted images were created and reviewed. This CT exam was performed using one or more of the following dose reduction techniques: automated exposure control, adjustment of the mA and/or kV according to patient size, and/or use of iterative reconstruction technique. CONTRAST: 90 ml of Optiray 320 was administered intravenously. COMPARISON: 10/14/2024 FINDINGS: Limitations: None. Lung bases: No abnormality noted. Pleural space: No visualized pleural effusion or pneumothorax. Heart: No abnormality noted. Mediastinum: No abnormality noted. ABDOMEN: Liver: No abnormality noted. Gallbladder and bile ducts: Cholecystectomy. No ductal dilation or stone noted. Mild intrahepatic biliary dilatation thought to be within normal limits postcholecystectomy. Liver otherwise is unremarkable. Pancreas: Homogeneous enhancement. No mass, inflammation or ductal dilation. Spleen: No acute abnormality noted. Adrenals: No acute abnormality noted. Kidneys and ureters: Slightly small right kidney is unchanged. There is homogeneous and symmetrical enhancement. There is mild bilateral ureteral urothelial thickening. No stones. No urinary gas. No perinephric fluid. Stomach and bowel: Moderate to large amounts of stool in the redundant colon with diffuse diverticulosis. No diverticulitis. No obstruction. PELVIS: Appendix: No findings to suggest acute appendicitis. Bladder: No filling defects to suggest mass or large stone. No inflammation. Reproductive: Hysterectomy. ABDOMEN and PELVIS: Intraperitoneal space: No free air. No significant fluid collection. Bones/joints: No acute changes. Soft tissues: No acute abnormality noted. Vasculature: Atherosclerotic calcification of the aorta and branches. No aneurysm. Lymph nodes: No pathologically enlarged lymph nodes. IMPRESSION: 1. Mild urothelial thickening of each ureter suspicious for pyelitis. Correlate with urinalysis. No renal abscess, perinephric fluid or cystitis. No stone. 2. Moderate amounts of stool throughout the colon and diverticulosis. No diverticulitis. ACT 112: N/A Electronically signed by Lima Clark 12-16-2024 6:39 PM
[2024-12-16] MEDS: cefTRIAXone SODIUM 1,000 MG/50 ML BAG IV STA (19:08)
--- NOTE | 2024-12-16 20:24 | History & Physical Report ---
Date of Service December 16, 2024 Assessment & Plan (1) Ureteritis due to infection: (2) Recurrent UTI (urinary tract infection): (3) Hematuria: (4) Chronic constipation: Plan Patient is a 64-year-old female with a past medical history of recurrent UTIs, chronic constipation on Linzess, IV contrast allergy, DVT, hypothyroidism, GERD, anxiety, type II DM. Patient presented due to left flank pain that has been worsening x 1 day as well as dysuria and increase in urinary frequency. Patient reports she has had recurrent UTIs failing 4-5 outpatient antibiotics however urine cultures are always negative, she is following with urology and has a cystoscopy scheduled for Wednesday. Workup has revealed bilateral ureteritis as well as UA concerning for infection. She is being admitted for IV antibiotics and to have urology eval. #Urethritis/recurrent UTIs/hematuria - AP CT showing thickening of bilateral ureters, no signs of pyelonephritis or stones. UA with 3+ LE, 21-50 WBC, 6-10 RBC (hematuria x 1 year). Nonseptic presentationno leukocytosis, VSS, afebrile. Renal function stable. Started on Rocephin in the ED, continue - consult urology, could consider cystoscopy in inpatient setting Pain control with Tylenol as needed, morphine 2/4 mg for breakthrough pain Will avoid further NSAIDs and monitor renal function Received Plasma-Lyte 1L bolus in the ED, continue fluid resuscitation with LR at 80 mL/hour x 2 L Follow urine cultures - urine G&C sent Trend CBC and BMP could consider topical estrogen cream if workup again does not reveal positive cultures #chronic constipationAP CT noted moderate amount of stool. Patient has not been regularly taking her Linzess due to intermittent diarrhea. Continue Linzess MiraLAX daily #Contrast allergyno signs of reaction at time of admission. Received Benadryl 25 mg x 1 in ED Benadryl as needed ordered #type II DMhold metformin, defer SSI as glucose stable #HTNhold spironolactone with IV contrast and infection above Trend BMP #GERDcontinue PPI and famotidine #Hypothyroidismcontinue levothyroxine #HLDcontinue statin VTE ppx: SCDs, high risk with hx DVT however possible urologic procedure - defer chemical ppx Dispo: med surg Admission and Anticipated Discharge Date Admission Date: 12/16/24 History of Present Illness Chief Complaint: urinary sx Primary Care Provider: Ros Gill DO Patient is a 64-year-old female with a past medical history of recurrent UTIs, chronic constipation on Linzess, IV contrast allergy, DVT, hypothyroidism, GERD, anxiety, type II DM. Patient presented due to left flank pain that has been worsening x 1 day as well as dysuria and increase in urinary frequency. Patient reports she has had recurrent UTIs failing 4-5 outpatient antibiotics however urine cultures are always negative, she is following with urology and has a cystoscopy scheduled for Wednesday. Workup has revealed bilateral ureteritis as well as UA concerning for infection. She is being admitted for IV antibiotics and to have urology eval. Patient seen at bedside. She stated since October she has had ongoing UTIs in which she has taken 4-5 antibiotics for, 2 of which were with urology (Dr. Ruby). She stated as soon as she stops the antibiotics her symptoms of dysuria, urinary urgency, and increase in urinary frequency returned. All of her cultures have returned negative however she has completed the full courses of all antibiotics. She is to have a cystoscopy this week with Dr. Ruby. She also reports hematuria noted on UA's over the past year, occasionally she can see gross hematuria however has not had any episodes recently. patient typically has very mild left flank pain however last evening it became more severe and she was unable to sleep so she came into the ED. She denies any right flank pain however does have right lower abdominal pain intermittently. She endorses being nauseous for several months since all this started, has only had approximately 3 episodes of vomiting. Nausea currently well-controlled, pain down from 8/10 to currently 4/10 after morphine and Toradol in the ED. She does endorse intermittent chills and sweats, however no reported fevers. She denies any concern for sexually transmitted infections as she is in a monogamous relationship with her and denies any vaginal burning or discharge. She denies any nicotine or alcohol use. She stated her grandfather of bladder cancer and her mother has polycystic kidney disease. she denies any nicotine or significant alcohol use. She did not take any of her home medications today. Regarding her constipation noted on AP CT, she has been on Linzess for approximately a year and has intermittent diarrhea. She has not been taking her Linzess regularly because of this however she did take it yesterday. She reports that her stool has been floating and is clover colored. She wishes to be full code. Allergies Allergy/AdvReac Type Severity Reaction Status Date / Time Tetanus Vaccines and Toxoid Allergy Severe Anaphylaxis Verified 12/16/24 16:54 Iodinated Contrast Media Allergy Unknown ANAPHYLAXIS Verified 12/16/24 16:54 iodine Allergy Unknown ANAPHYLAXIS Verified 12/16/24 16:54 clams Allergy Hives Verified 12/16/24 16:54 Home Medications Medication Instructions Recorded Confirmed Type cetirizine 10 mg tablet 10 mg PO QAM 12/05/20 12/16/24 History metformin 500 mg tablet,extended 500 mg PO BID #180 tabs 02/18/24 12/16/24 Rx release 24 hr clindamycin phosphate 1 % topical 1 applic topical BID PRN lesion 05/11/24 12/16/24 Rx gel #60 grams folic acid 1 mg tablet 1 mg PO QAM #90 tabs 07/04/24 12/16/24 Rx pantoprazole 40 mg tablet,delayed 40 mg PO DAILY GERD #90 tabs 07/13/24 12/16/24 Rx release (Protonix) levothyroxine 88 mcg tablet 88 mcg PO DAILY #90 tabs 10/17/24 12/16/24 Rx atorvastatin 20 mg tablet 20 mg PO QPM #90 tabs 11/10/24 12/16/24 Rx spironolactone 100 mg tablet 100 mg PO DAILY #90 tabs 12/15/24 12/16/24 Rx escitalopram oxalate 10 mg tablet 10 mg PO QPM 12/16/24 12/16/24 History famotidine 20 mg tablet 20 mg PO QPM 12/16/24 12/16/24 History linaclotide 72 mcg capsule 72 mcg PO QPM 12/16/24 12/16/24 History (Linzess) Past Med/Surg History Problem List (Updated 12/17/24 @ 00:15 by Khari Dove DO) Acute flank pain (Acute) Lower urinary tract symptoms (LUTS) (Acute) Acute pyelitis (Acute) Recurrent UTI (urinary tract infection) Ureteritis due to infection Hematuria Osteoarthritis Rupture of right biceps tendon Rupture of right rotator cuff Bilateral occipital neuralgia History of stress fracture (~03/17/21) Stress fracture of tibia Spinal stenosis of cervical region with radiculopathy Degenerative disc disease, cervical Prediabetes Chronic constipation Gastritis GERD (gastroesophageal reflux disease) Rosacea Degenerative joint disease (DJD) of lumbar spine Spondylolisthesis of lumbar region Acne Dyslipidemia Hypothyroidism Anxiety disorder Medical History (Updated 12/17/24 @ 00:15 by Khari Dove DO) Hydradenitis Fecal incontinence Degenerative joint disease (DJD) of lumbar spine Rosacea History of COVID-29 MAR 2020> HEADACHE, LOSS OF SMELL, ALL OVER PAIN > NOT HOSPITALIZED > WAS NOT TESTED, TESTED POSITIVE, SAID TO ASSUME PT WAS POSITIVE DVT (deep venous thrombosis) 1983 > FROM SNAKE BITE > LEG Surgical History History of tooth extraction History of colonoscopy H/O lymph node excision AGE 14 LEFT SIDE NECK History of oophorectomy, unilateral H/O hysterectomy with unilateral oophorectomy S/P breast biopsy, left benign S/P cholecystectomy H/O ovarian cystectomy Family History Father Myocardial infarction, Onset Age: 57 Coronary heart disease Mother Hypertension Uncle Colorectal cancer Grandfather (Paternal) Stomach cancer Grandfather (Maternal) Bladder cancer Aunt Breast cancer Denies family history of Ovarian cancer Prostate cancer Social History Smoking Status: Never smoker Tobacco Type: Cigarettes Age Started Using Tobacco: 29; Age Quit Using Tobacco: 51; packs per day: 1; Second Hand Exposure: No; Do You Dip or Chew Tobacco: No; Hx Alcohol Use: Yes Alcohol type: beer Alcohol Intake Frequency: Monthly or Less Hx Substance Use: No Preferred Language: Burmese Communication Ability: Effective Visual Impairment: No Limitations Hearing Ability: Normal Dependency Counselor Required: No Beliefs That Will Affect Care: None marital status: Current Living Situation: Spouse current occupational status: retired How many Children do You have: 2 How many Children do You have Comment: 2 boys Feels Safe at Home: Yes Childhood Exposure to Second-Hand Smoke: No Diet: low carbohydrate Diet Comment: low carb caffeine: Yes during the past year weight has: remained stable Dental Care, Regularly: Yes Physical Activity Frequency: 3-4 Times per Week Physical Activity Frequency Comment: walking Seatbelt Use: always Sunscreen Use: Yes Assistive Devices: Glasses Review of Systems Review of Systems: see HPI Physical Exam Physical Exam: The patient is awake, alert and oriented 3, well developed and well nourished, normocephalic and atraumatic, in no acute distress. Non-toxic appearing. HEENT- EOMI, mucous membranes moist. Hearing grossly intact. Heart-normal S1 and S2. No murmurs, rubs or gallops. Lungs-clear bilaterally, no respiratory distress, no accessory muscle use. Abdomen-normal bowel sounds and soft. No ascites noted. Tender to LUQ. Extremities- no clubbing, cyanosis, or edema. Rheumatologic-normal range of motion. Psychiatric-normal affect. Results & Data Results & Data Vital Signs (Past 12 Hours) Vital Signs Temp Pulse Pulse Resp BP BP Pulse Ox 12/16/24 20:00 60 16 112/74 95 12/16/24 19:47 63 12/16/24 18:33 61 18 114/68 99 12/16/24 17:00 58 L 18 115/81 99 12/16/24 15:46 64 12/16/24 15:30 60 18 125/78 99 12/16/24 15:02 81 18 97 12/16/24 14:24 36.4 C L 81 18 127/78 97 O2 Del Method 12/16/24 20:00 Room Air 12/16/24 19:47 12/16/24 18:33 Room Air 12/16/24 17:00 Room Air 12/16/24 15:46 12/16/24 15:30 Room Air 12/16/24 15:02 Room Air 12/16/24 14:24 Room Air Laboratory Results Reviewed CBC, CMP, lactate, procalcitonin, UA Ordered urine G and C Diagnostic Findings reviewed APCT Medications Administered EDRocephin 1G IV, morphine 4 Mg IV, Benadryl 25 mg IV, Toradol 15 mg IV, Plasma-Lyte 1 L bolus ECG Additional Comments: NSR rate 64 qtc 435 Code Status & VTE Plan Code Status full code VTE Prophylaxis Plan VTE Prophylaxis will be ordered: Yes Supervising Physician Co-Signing Physician Notes Patient seen and examined, chart reviewed, case discussed with KINGS Casey and I agree with the assessment and plan as above. In brief, patient is a 64yo female with history of chronic constipatioin, DVT< GERD, DM presenting with left flank pain and urinary symptoms. She reports frequent UTIs, have been culture negative however. She has a cystoscopy scheduled with Urology for 12/20/24 Patient is s/p Hysterectomy. Does feel some fullness in her vagina at times but denies prolapse. Denies vaginal discharge or rash. No concern for STIs. On exam she is afebrile, HD stable, nontoxic in appearance SKin - no rarsh HEENT - MMM, Neck supple Heart - +S1/S2, regular, no m/r/g Lungs - CTA Abd - soft, NT/ND Ext - no edema Labs and images reviewed UA with 1+ blood, 3+ LE, WBCs and RBCs. No bacteria CT of the abdomen with constipation, possible pyelitis Assessment/Plan -Urine culture ordered -IVF -Ceftriaxone -Consider topical estrogen -Urology consultation appreciated -Remainder as above PG Care Time/CCT Total # of Minutes Spent Total Time Spent with Patient: Total time spent is greater than 50% in coordination of care (as documented) at patient's floor/unit and/or counseling patient: Coding Level of Care Code 38434 INT INP/OBS CARE 375MIN Diagnoses Ureteritis due to infection N28.89 Recurrent UTI (urinary tract infection) N39.0 Hematuria R31.9 Chronic constipation K59.09
[2024-12-16] MEDS: ACETAMINOPHEN 325 MG TAB PO STA (20:47)
[2024-12-16] MEDS: LACTATED RINGER'S 1,000 ML IV SCH (20:47)
[2024-12-16] MEDS ORDERED: diphenhydrAMINE 50 MG/ML VIAL IV PRN (21:54)
[2024-12-16] MEDS ORDERED: DOCUSATE SODIUM 100 MG CAP PO PRN (21:54)
[2024-12-16] MEDS ORDERED: MoRPHine SULFATE 4 MG/ML 1 ML CARP\\VIAL IV PRN (22:19)
[2024-12-16] MEDS: ATORVASTATIN 20 MG TAB PO SCH (22:47)
[2024-12-16] MEDS: ESCITALOPRAM OXALATE 10 MG TAB PO SCH (22:47)
[2024-12-16] MEDS: FAMOTIDINE 20 MG TAB PO SCH (22:47)
[2024-12-16] MEDS: KETOROLAC TROMETHAMINE 15 MG/ML VIAL IV ONE (23:25)
[2024-12-16] MEDS: KETOROLAC TROMETHAMINE 15 MG/ML VIAL ONE (23:39)
[2024-12-17] MEDS: MoRPHine SULFATE 4 MG/ML 1 ML CARP\\VIAL IV PRN (01:17)
[2024-12-17] MEDS: MELATONIN 3 MG TAB PO PRN (01:17)
[2024-12-17] MEDS: LEVOTHYROXINE SODIUM 88 MCG TABLET PO SCH (05:43)
[2024-12-17 05:58] LABS: Hematocrit (blood only) 35.6 % (37.0-47.0); Hemoglobin 12.0 g/dl (12.0-16.0); Immature Granulocytes # (auto) 0.01 K/uL (0.01-0.20); Immature Granulocytes % (auto) 0.2 %; Mean Corpuscular Hemoglobin 30.9 pg (25.0-34.0); Mean Corpuscular Volume 91.8 fL (80.0-100.0); Platelet Count 228 K/uL (130-400); RDW Standard Deviation 43.4 fL (36.4-46.3); Red Blood Count 3.88 M/uL (4.20-5.40); White Blood Count 6.12 K/ul (4.8-10.8)
[2024-12-17 06:23] LABS: Alanine Aminotransferase 114.0 U/L (7-52); Albumin Globulin Ratio 1.5 (0.9-2); Albumin Level 3.7 gm/dl (3.4-5.0); Alkaline Phosphatase 103.0 U/L (34-104); Anion Gap 7.0 (3-11); Bilirubin,Total 0.8 mg/dl (0.2-1.0); Blood Urea Nitrogen 27.0 mg/dl (6-23); Calcium 9.1 mg/dl (8.6-10.3); Carbon Dioxide 28.0 mmol/L (21-32); Chloride 104.0 mmol/L (98-107); Creatinine Clr Calc Pharmacy 49.7 ml/min; Globulin 2.4 gm/dl (2.5-4.0); Glucose 96.0 mg/dl (70-99(Fasting)); Magnesium 2.0 mg/dl (1.7-2.4); Potassium 4.0 mmol/L (3.5-5.1); Sodium 139.0 mmol/L (136-145); Total Protein 6.1 gm/dl (6.0-8.3)
[2024-12-17] MEDS: ACETAMINOPHEN 325 MG TAB PO PRN (07:34)
[2024-12-17] MEDS: KETOROLAC TROMETHAMINE 15 MG/ML VIAL IV ONE (08:24)
[2024-12-17] MEDS: POLYETHYLENE (MIRALAX) 17 GM PACK PO SCH (08:27)
[2024-12-17] MEDS: KETOROLAC TROMETHAMINE 15 MG/ML VIAL IV PRN (14:30)
--- NOTE | 2024-12-17 15:20 | Hospitalist Progress Note ---
"Date of Service December 17, 2024 Assessment & Plan (1) Ureteritis due to infection: (2) Recurrent UTI (urinary tract infection): (3) Hematuria: (4) Chronic constipation: Plan Patient is a 64-year-old female with a past medical history of recurrent UTIs, chronic constipation on Linzess, IV contrast allergy, DVT, hypothyroidism, GERD, anxiety, type II DM. Patient presented due to left flank pain that has been worsening x 1 day as well as dysuria and increase in urinary frequency. Patient reports she has had recurrent UTIs failing 4-5 outpatient antibiotics however urine cultures are always negative, she is following with urology and has a cystoscopy scheduled for Wednesday. Workup has revealed bilateral ureteritis as well as UA concerning for infection. She is being admitted for IV antibiotics and to have urology eval. #Urethritis/recurrent UTIs/hematuria - With hx of 4 rounds of abx over the last 6-8 weeks, most recently Levaquin then Macrobid. UC always negative. AP CT showing thickening of bilateral ureters, no signs of pyelonephritis or stones. UA with 3+ LE, 21-50 WBC, 6-10 RBC (hematuria x 1 year). Nonseptic presentationno leukocytosis, VSS, afebrile. Renal function stable. Continue Rocephin Urology consulted Pain control: tylenol, Toradol for breakthrough - patient not tolerating opioids and with constipation - will carefully monitor kidney function Urine Culture pending Urine G&C pending #chronic constipationAP CT noted moderate amount of stool. Patient has not been regularly taking her Linzess due to intermittent diarrhea. Continue Linzess MiraLAX daily No BM yet #Transaminitis | HLD - acute elevation in LFTs, otherwise asymptomatic hold statin Trend in AM #Contrast allergyno signs of reaction at time of admission. Received Benadryl 25 mg x 1 in ED Benadryl as needed ordered #type II DMhold metformin, defer SSI as glucose stable #HTNhold spironolactone with IV contrast and infection above Trend BMP #GERDcontinue PPI and famotidine #Hypothyroidismcontinue levothyroxine VTE ppx: SCDs, high risk with hx DVT however possible urologic procedure - defer chemical ppx Dispo: continued inpatient stay, IV abx and awaiting urology input Admission and Anticipated Discharge Date Admission Date: December 16, 2024 Supervising Physician Co-Signing Physician Notes Attending Attestation - Chart reviewed, care plan d/w ANGELITO Lopez. I agree w/ the adamson components of her documentation. Faisal Schmid MD Subjective Patient seen resting in bed, family present at bedside. Patient with great concern and frustration with all of the symptoms she has been having over the last 6 week. Has had 4 rounds of abx, most recently levaquin and then macrobid despite negative cultures. Report that her symptoms do not really go away, but get considerably better on day 6-7 of antibiotic course Pain is signficant on left side and wraps around the back, also RLQ No bowel movement since arrival - reporting weaned off linzess bc of diarrhea over the last month, but has been on linzess for a year and not a baseline issue. ALso rpeorting hot flashes that happen 2-3 times a day and develop chills after. hx of hysterectomy at 28 Review of Systems Review of Systems: All systems reviewed & are unremarkable except as noted in Subjective Physical Exam Physical Exam: The patient is awake, alert and oriented 3, well developed and well nourished, normocephalic and atraumatic, in no acute distress. Non-toxic appearing. HEENT- EOMI, mucous membranes moist. Hearing grossly intact. Heart-normal S1 and S2. No murmurs, rubs or gallops. Lungs-clear bilaterally, no respiratory distress, no accessory muscle use. Abdomen-normal bowel sounds and soft. No ascites noted. Tender to LUQ the worst, no suprapubic tenderness. Does have some point tenderness RLQ just inside of hip bone. Back - left sided CVA tenderness and lower back tenderness Extremities- no clubbing, cyanosis, or edema. Rheumatologic-normal range of motion. Psychiatric-normal affect. Results & Data Results & Data Vital Signs (Past 12 Hours) Vital Signs Temp Pulse Resp BP Pulse Ox O2 Del Method 12/17/24 07:49 97.7 F 58 L 14 106/66 97 Room Air Laboratory Results cbc and chemistry reviewed LFTs reviewed PG Care Time/CCT Total # of Minutes Spent Total Time Spent with Patient: Total time spent is greater than 50% in coordination of care (as documented) at patient's floor/unit and/or counseling patient: Coding Level of Care Code 96537 SUB INP/OBS CARE 50MIN Diagnoses Ureteritis due to infection N28.89 Recurrent UTI (urinary tract infection) N39.0 Hematuria R31.9 Chronic constipation K59.09"
[2024-12-17] MEDS: cefTRIAXone SODIUM 1,000 MG/50 ML BAG IV SCH (18:03)
[2024-12-17] MEDS: ACETAMINOPHEN 500 MG TAB PO PRN (21:10)
[2024-12-17] MEDS: ONDANSETRON INJ 2 MG/ML 2 ML VIAL IV PRN (21:13)
[2024-12-18 06:15] LABS: Hematocrit (blood only) 34.6 % (37.0-47.0); Hemoglobin 11.7 g/dl (12.0-16.0); Mean Corpuscular Hemoglobin 30.6 pg (25.0-34.0); Mean Corpuscular Volume 90.6 fL (80.0-100.0); Platelet Count 213 K/uL (130-400); RDW Standard Deviation 42.1 fL (36.4-46.3); Red Blood Count 3.82 M/uL (4.20-5.40); White Blood Count 5.71 K/ul (4.8-10.8)
[2024-12-18 06:35] LABS: Alanine Aminotransferase 56.0 U/L (7-52); Albumin Globulin Ratio 1.6 (0.9-2); Albumin Level 3.9 gm/dl (3.4-5.0); Alkaline Phosphatase 89.0 U/L (34-104); Anion Gap 7.0 (3-11); Bilirubin,Total 0.7 mg/dl (0.2-1.0); Blood Urea Nitrogen 21.0 mg/dl (6-23); Calcium 9.2 mg/dl (8.6-10.3); Carbon Dioxide 26.0 mmol/L (21-32); Chloride 106.0 mmol/L (98-107); Creatinine Clr Calc Pharmacy 50.2 ml/min; Globulin 2.5 gm/dl (2.5-4.0); Glucose 105.0 mg/dl (70-99(Fasting)); Potassium 4.1 mmol/L (3.5-5.1); Sodium 139.0 mmol/L (136-145); Total Protein 6.4 gm/dl (6.0-8.3)
[2024-12-18 07:47] VITALS: PULSE 57; RESP 16; TEMP 97.5; O2SAT 97
[2024-12-18 09:14] VITALS: BP 102/63
--- NOTE | 2024-12-18 12:00 | Urology Consultation ---
<Statement entered by Cesar Seymour MD - 12/18/24 14:16> Chart reviewed plan reviewed and agree as written. Date of Consultation December 18, 2024 Assessment & Plan (1) Lower urinary tract symptoms (LUTS): (2) Acute flank pain: (3) Bladder pain: (4) Recurrent UTI (urinary tract infection): Plan 64yo female admitted for concern of UTI/Ureteritis Urology consulted for recurrent UTIs, hematuria, and consideration of cystoscopy Pt afebrile, hemodynamically stable Labs-WBCs 5.71, hemoglobin 11.7, creatinine 0.98 Urinalysis on arrival showed 1+ blood, 3+ LE, 2150 WBC, 610 RBC, negative bacteria, negative nitrite. Urine culture 12/16/2024 grew more than 3 types of organisms, moderate counts Prior urine culture 12/08/24 was negative She is on ceftriaxone CT abd pelvis report noted mild bilateral urothelial thickening of each ureter suspicious for pyelitis There appears to be mild dilation of bilateral ureters, possibly due to incomplete emptying No plan for surgical intervention She will eventually need cystoscopy to complete the hematuria work-up, but this can be completed as an outpatient Continue supportive care and management of constipation Recommend checking bladder scan/PVRs to ensure she is emptying Consider Pyridium PRN for bladder pain We also discussed topical estrogen cream and/or medication options for OAB/IC- can discuss further as an outpatient Urology will follow along History of Present Illness Attending Physician: Faisal Schmid MD History of Present Illness 64-year-old female with a history of frequent UTIs and hematuria who presented to the ED on 12/16/2024 with complaints of worsening left flank pain, dysuria, and urinary frequency. She has had ongoing UTI symptoms despite several different antibiotic courses. Most recent urine cultures were negative. She is currently scheduled for outpatient cystoscopy on 12/20/[address] Ruby. On arrival, she was afebrile and hemodynamically stable. Labs showing no leukocytosis and normal renal function. Urinalysis on arrival showed 1+ blood, 3+ LE, 2150 WBC, 610 RBC, negative bacteria, negative nitrite. CT abdomen pelvis with contrast - Mild bilateral urothelial thickening of each ureter suspicious for pyelitis, no stones, no renal abscess, perinephric fluid or cystitis. Patient was seen at bedside today. She is awake and resting in bed on arrival. No acute distress. Still with left flank discomfort. Reports bladder pain/pressure. Feels she is emptying well. Some urge/freq. No gross hematuria. No fevers. Allergies Allergy/AdvReac Type Severity Reaction Status Date / Time Tetanus Vaccines and Toxoid Allergy Severe Anaphylaxis Verified 12/16/24 16:54 Iodinated Contrast Media Allergy Unknown ANAPHYLAXIS Verified 12/16/24 16:54 iodine Allergy Unknown ANAPHYLAXIS Verified 12/16/24 16:54 clams Allergy Hives Verified 12/16/24 16:54 Home Medications Medication Instructions Recorded Confirmed Type cetirizine 10 mg tablet 10 mg PO QAM 12/05/20 12/16/24 History metformin 500 mg tablet,extended 500 mg PO BID #180 tabs 02/18/24 12/16/24 Rx release 24 hr clindamycin phosphate 1 % topical 1 applic topical BID PRN lesion 05/11/24 12/16/24 Rx gel #60 grams folic acid 1 mg tablet 1 mg PO QAM #90 tabs 07/04/24 12/16/24 Rx pantoprazole 40 mg tablet,delayed 40 mg PO DAILY GERD #90 tabs 07/13/24 12/16/24 Rx release (Protonix) levothyroxine 88 mcg tablet 88 mcg PO DAILY #90 tabs 10/17/24 12/16/24 Rx atorvastatin 20 mg tablet 20 mg PO QPM #90 tabs 11/10/24 12/16/24 Rx spironolactone 100 mg tablet 100 mg PO DAILY #90 tabs 12/15/24 12/16/24 Rx escitalopram oxalate 10 mg tablet 10 mg PO QPM 12/16/24 12/16/24 History famotidine 20 mg tablet 20 mg PO QPM 12/16/24 12/16/24 History linaclotide 72 mcg capsule 72 mcg PO QPM 12/16/24 12/16/24 History (Linzess) Patient History Medical History (Updated 12/18/24 @ 12:32 by NELSON Thompson) Hydradenitis Fecal incontinence Degenerative joint disease (DJD) of lumbar spine Rosacea History of COVID-29 MAR 2020> HEADACHE, LOSS OF SMELL, ALL OVER PAIN > NOT HOSPITALIZED > WAS NOT TESTED, TESTED POSITIVE, SAID TO ASSUME PT WAS POSITIVE DVT (deep venous thrombosis) 1983 > FROM SNAKE BITE > LEG Surgical History History of tooth extraction History of colonoscopy H/O lymph node excision AGE 14 LEFT SIDE NECK History of oophorectomy, unilateral H/O hysterectomy with unilateral oophorectomy S/P breast biopsy, left benign S/P cholecystectomy H/O ovarian cystectomy Family History Father Myocardial infarction, Onset Age: 57 Coronary heart disease Mother Hypertension Uncle Colorectal cancer Grandfather (Paternal) Stomach cancer Grandfather (Maternal) Bladder cancer Aunt Breast cancer Denies family history of Ovarian cancer Prostate cancer Social History Smoking Status: Former smoker Tobacco Type: Cigarettes Age Started Using Tobacco: 29; Age Quit Using Tobacco: 51; packs per day: 1; Second Hand Exposure: No; Do You Dip or Chew Tobacco: No; Hx Alcohol Use: Yes Alcohol type: beer Alcohol Intake Frequency: Monthly or Less Hx Substance Use: No Preferred Language: Palestinian Communication Ability: Effective Visual Impairment: No Limitations Hearing Ability: Normal Mailroom Personnel Required: No Beliefs That Will Affect Care: None marital status: Current Living Situation: Spouse Current Living Situation Comment: and mother current occupational status: retired How many Children do You have: 2 How many Children do You have Comment: 2 boys Other Information That Helps Us Care for You: No Feels Safe at Home: Yes Safety Concerns: Feels Safe At This Time Childhood Exposure to Second-Hand Smoke: No Diet: low carbohydrate Diet Comment: low carb caffeine: Yes during the past year weight has: remained stable Dental Care, Regularly: Yes Physical Activity Frequency: 3-4 Times per Week Physical Activity Frequency Comment: walking Seatbelt Use: always Sunscreen Use: Yes Assistive Devices: Glasses Review of Systems Review of Systems: All systems reviewed & are unremarkable except as noted in HPI & below Physical Exam Constitutional: no acute distress Respiratory: no respiratory distress and no labored breathing Neurologic: moves all extremities and awake Psychiatric: A+Ox3, euthymic affect Genitourinary: Mild tenderness with palpation over bladder and left flank Results & Data Vital Signs (Past 12 Hours) Vital Signs Temp Pulse Resp BP Pulse Ox O2 Del Method 12/18/24 09:13 57 L 16 102/63 97 Room Air 12/18/24 07:46 36.4 C L 57 L 16 115/71 97 Room Air PG Care Time/CCT Total # of Minutes Spent Total Time Spent with Patient: Total time spent is greater than 50% in coordination of care (as documented) at patient's floor/unit and/or counseling patient: Coding Level of Care Code 46948 INT INP/OBS CARE 2/55MIN Diagnoses Lower urinary tract symptoms (LUTS) R39.9 Acute flank pain R10.A0 Bladder pain R39.89 Recurrent UTI (urinary tract infection) N39.0
[2024-12-18] MEDS ORDERED: PHENAZOPYRIDINE HCL 200 MG TAB PO PRN (12:28)
--- NOTE | 2024-12-18 13:34 | Discharge Summary ---
"Discharge Summary Date of Service December 18, 2024 Principal Dx & Hospital Course #1 = Principal Diagnosis (1) Ureteritis due to infection: (2) Recurrent UTI (urinary tract infection): (3) Hematuria: (4) Chronic constipation: Plan #Urethritis/recurrent UTIs/hematuria Patient is a 64-year-old female with a past medical history of recurrent UTIs, chronic constipation on Linzess, IV contrast allergy, DVT, hypothyroidism, GERD, anxiety, type II DM. Patient presented due to left flank pain that has been worsening x 1 day as well as dysuria and increase in urinary frequency. Patient reports she has had recurrent UTIs failing 4-5 outpatient antibiotics however urine cultures are always negative, she is following with urology and has a cystoscopy scheduled for Wednesday. Workup has revealed bilateral ureteritis as well as UA concerning for infection. Urine culture without infection, antibiotics stopped. Urology consulted - no acute intervention, continue plan for outpatient cystoscopy. Can initiate Pyridium, oxybutynin may also be beneficial but will hold off with constipation. Interstitial cystitis remains on the differential, incomplete emptying is less likely as PVR was 136. Urine G&C pending #chronic constipationAP CT noted moderate amount of stool. Patient has not been regularly taking her Linzess due to intermittent diarrhea. Suspect diarrhea related to antibiotics. Given Linzess and MiraLAX and patient still no bowel movement. discussed importance of adherence to continued bowel regimen to help limit her symptoms. #Transaminitis | HLD - acute elevation in LFTs 200s, Statin held and LFTs improving now in the 40s. Okay to resume statin. Recommend recheck~ 1 week to ensure return to normal #type II DM okay to resume metformin #HTN okay to resume spironolactone #GERDcontinue PPI and famotidine #Hypothyroidismcontinue levothyroxine Dispo: discharge to home, urology follow-up Discussed with urology ADAM 12/18 Family updated at bedside 12/18 Notes For Next Care Provider Medication Changes From Visit as needed Pyridium Admission HPI Per Admitting Provider Patient is a 64-year-old female with a past medical history of recurrent UTIs, chronic constipation on Linzess, IV contrast allergy, DVT, hypothyroidism, GERD, anxiety, type II DM. Patient presented due to left flank pain that has been worsening x 1 day as well as dysuria and increase in urinary frequency. Patient reports she has had recurrent UTIs failing 4-5 outpatient antibiotics however urine cultures are always negative, she is following with urology and has a cystoscopy scheduled for Wednesday. Workup has revealed bilateral ureteritis as well as UA concerning for infection. She is being admitted for IV antibiotics and to have urology eval. Patient seen at bedside. She stated since October she has had ongoing UTIs in which she has taken 4-5 antibiotics for, 2 of which were with urology (Dr. Ruby). She stated as soon as she stops the antibiotics her symptoms of dysuria, urinary urgency, and increase in urinary frequency returned. All of her cultures have returned negative however she has completed the full courses of all antibiotics. She is to have a cystoscopy this week with Dr. Ruby. She also reports hematuria noted on UA's over the past year, occasionally she can see gross hematuria however has not had any episodes recently. patient typically has very mild left flank pain however last evening it became more severe and she was unable to sleep so she came into the ED. She denies any right flank pain however does have right lower abdominal pain intermittently. She endorses being nauseous for several months since all this started, has only had approximately 3 episodes of vomiting. Nausea currently well-controlled, pain down from 8/10 to currently 4/10 after morphine and Toradol in the ED. She does endorse intermittent chills and sweats, however no reported fevers. She denies any concern for sexually transmitted infections as she is in a monogamous relationship with her and denies any vaginal burning or discharge. She denies any nicotine or alcohol use. She stated her grandfather of bladder cancer and her mother has polycystic kidney disease. she denies any nicotine or significant alcohol use. She did not take any of her home medications today. Regarding her constipation noted on AP CT, she has been on Linzess for approximately a year and has intermittent diarrhea. She has not been taking her Linzess regularly because of this however she did take it yesterday. She reports that her stool has been floating and is clover colored. She wishes to be full code. Discharge Exam General: NAD, VS as above Resp: normal respiratory effort, lungs clear to auscultation CV: RRR, no murmur, Abd: normal bowel sounds, non tender, soft Extremities: Moves all extremities, no edema Neuro: A&O x3, Discharge Plan Discharge Items Patient Disposition: Home - Self-Care Reason For Visit: URETERITIS, RECURRENT UTIS Discharge Diagnosis: Recurrent UTIs Condition on Discharge: Fair Activity: Resume your previous activity Non-emergency contact: Primary Care Provider and Urologist Call non-emergency contact if: you have any medication questions, your pain is not controlled, your pain is worsening and your temperature is above 101.5 Follow-up/Referrals: Charlie Ruby MD [Physician] - ( keep appointment as scheduled) Ros Gill DO [Primary Care Provider] - 12/26/24 11:00 am Diet: Carb Consistent or DM2 Addtl Attending Provider Instructions: Ms. Hunter You were hospitalized after worsening abdominal pain. Initially thought to be from a UTI but your urine culture was negative. Your pain is likely multifactorial - from constipation, muscle pain and possible urologic cause. Please continue taking Linzess and add miralax if you continue to be constipated. You were seen by urology who did not recommend acute intervention in the inpatient setting and will plan for outpatient cystoscopy. In the meantime, I have sent Pyridium to your pharmacy - this can be used as needed for pain with urination. Given that interstitial cystitis is on the differential as a potential cause of your pain - recommend keeping a food diary and see if there are certain foods that make your symptoms worse. Typically cysitis is trigger by acidic foods, spicy foods or artificial sweeteners. Recommend repeat labs next week to make sure your liver function tests have return to normal - this can be discussed with your PCP. Activity: You can do normal everyday activities as your body allows. Take rest breaks if you feel tired. Do not overexert. Stop activity if you have pain, shortness of breath or feel dizzy. Follow-up appointments: Make an appointment with your primary care physician within one week of discharge. A copy of this summary will be sent to them. Every time you see your primary care physician, or any other doctor, bring your medication list, and a list of questions. CONTACT YOUR PRIMARY CARE PROVIDER if you experience any of the following: Shortness of breath or difficulty breathing Fevers or chills Feeling tired with normal activity or experiencing dizziness or fainting Difficulty following your treatment plan, or difficulty taking medications CALL 911 OR GO TO THE EMERGENCY DEPARTMENT if you experience any of the following: Severe abdominal pain or nausea/vomiting Severe chest pain, or chest pain that radiates (moves) to your jaw or arm Sudden, severe shortness of breath or difficulty breathing Thank you for allowing us to participate in your care. Pending Studies at Discharge: No Stand-Alone Forms: [facility], Smoking Cessation Medications and DC Order Prescriptions: New phenazopyridine [Pyridium] 200 mg Tablet 200 mg PO BID PRN (Reason: dysuria) Qty: 10 0RF Continued metformin 500 mg tablet extended release 24 hr 500 mg PO BID Qty: 180 2RF folic acid 1 mg tablet 1 mg PO QAM Qty: 90 2RF levothyroxine 88 mcg tablet 88 mcg PO DAILY Qty: 90 1RF atorvastatin 20 mg tablet 20 mg PO QPM Qty: 90 3RF spironolactone 100 mg tablet 100 mg PO DAILY Qty: 90 1RF Hold Instructions: Home Medication placed on hold at Doctor's office clindamycin phosphate 1 % gel 1 applic topical BID PRN (Reason: lesion) Qty: 60 0RF pantoprazole [Protonix] 40 mg tablet,delayed release (DR/EC) 40 mg PO DAILY Qty: 90 3RF cetirizine 10 mg tablet 10 mg PO QAM famotidine 20 mg tablet 20 mg PO QPM escitalopram oxalate 10 mg tablet 10 mg PO QPM Linzess 72 mcg capsule 72 mcg PO QPM Discharge Orders: Discharge Order (Routine); Ordered 12/18/24 Ordered By: Gardenia Hernandez/Other Patient Handouts: Interstitial Cystitis Lifestyle, What Is Interstitial Cystitis Admission Data Admit Date/Time: 12/16/24 20:39 Attending Provider: Faisal Schmid Admit Provider: Isabelle Christensen Primary Care Provider: Ros Gill Other Providers: Isabelle Christensen; Cesar Seymour Hospital Stay Data Consultations 12/16/24 19:59 ED Decision to Admit Stat 12/16/24 21:54 Consult Urology Routine Diagnostic Imagining Performed Abdomen/Pelvis CT 12/16/24 14:48 EXAM: CT Abdomen and Pelvis With Intravenous Contrast INDICATION: Urinary tract infection. Severe left flank pain. TECHNIQUE: Axial computed tomography images of the abdomen and pelvis with intravenous contrast. Sagittal and coronal reformatted images were created and reviewed. This CT exam was performed using one or more of the following dose reduction techniques: automated exposure control, adjustment of the mA and/or kV according to patient size, and/or use of iterative reconstruction technique. CONTRAST: 90 ml of Optiray 320 was administered intravenously. COMPARISON: 10/14/2024 FINDINGS: Limitations: None. Lung bases: No abnormality noted. Pleural space: No visualized pleural effusion or pneumothorax. Heart: No abnormality noted. Mediastinum: No abnormality noted. ABDOMEN: Liver: No abnormality noted. Gallbladder and bile ducts: Cholecystectomy. No ductal dilation or stone noted. Mild intrahepatic biliary dilatation thought to be within normal limits postcholecystectomy. Liver otherwise is unremarkable. Pancreas: Homogeneous enhancement. No mass, inflammation or ductal dilation. Spleen: No acute abnormality noted. Adrenals: No acute abnormality noted. Kidneys and ureters: Slightly small right kidney is unchanged. There is homogeneous and symmetrical enhancement. There is mild bilateral ureteral urothelial thickening. No stones. No urinary gas. No perinephric fluid. Stomach and bowel: Moderate to large amounts of stool in the redundant colon with diffuse diverticulosis. No diverticulitis. No obstruction. PELVIS: Appendix: No findings to suggest acute appendicitis. Bladder: No filling defects to suggest mass or large stone. No inflammation. Reproductive: Hysterectomy. ABDOMEN and PELVIS: Intraperitoneal space: No free air. No significant fluid collection. Bones/joints: No acute changes. Soft tissues: No acute abnormality noted. Vasculature: Atherosclerotic calcification of the aorta and branches. No aneurysm. Lymph nodes: No pathologically enlarged lymph nodes. IMPRESSION: 1. Mild urothelial thickening of each ureter suspicious for pyelitis. Correlate with urinalysis. No renal abscess, perinephric fluid or cystitis. No stone. 2. Moderate amounts of stool throughout the colon and diverticulosis. No diverticulitis. ACT 112: N/A Electronically signed by Lima Clark 12-16-2024 6:39 PM Pending Results Patient Have Any Pending Studies at Discharge: No Discharge Instructions Given to Patient (Per Discharging Provider) Ms. Hunter You were hospitalized after worsening abdominal pain. Initially thought to be from a UTI but your urine culture was negative. Your pain is likely multifactorial - from constipation, muscle pain and possible urologic cause. Please continue taking Linzess and add miralax if you continue to be constipated. You were seen by urology who did not recommend acute intervention in the inpatient setting and will plan for outpatient cystoscopy. In the meantime, I have sent Pyridium to your pharmacy - this can be used as needed for pain with urination. Given that interstitial cystitis is on the differential as a potential cause of your pain - recommend keeping a food diary and see if there are certain foods that make your symptoms worse. Typically cysitis is trigger by acidic foods, spicy foods or artificial sweeteners. Recommend repeat labs next week to make sure your liver function tests have return to normal - this can be discussed with your PCP. Activity: You can do normal everyday activities as your body allows. Take rest breaks if you feel tired. Do not overexert. Stop activity if you have pain, shortness of breath or feel dizzy. Follow-up appointments: Make an appointment with your primary care physician within one week of discharge. A copy of this summary will be sent to them. Every time you see your primary care physician, or any other doctor, bring your medication list, and a list of questions. CONTACT YOUR PRIMARY CARE PROVIDER if you experience any of the following: Shortness of breath or difficulty breathing Fevers or chills Feeling tired with normal activity or experiencing dizziness or fainting Difficulty following your treatment plan, or difficulty taking medications CALL 911 OR GO TO THE EMERGENCY DEPARTMENT if you experience any of the following: Severe abdominal pain or nausea/vomiting Severe chest pain, or chest pain that radiates (moves) to your jaw or arm Sudden, severe shortness of breath or difficulty breathing Thank you for allowing us to participate in your care. Total Time Total Time Spent Total Time Spent (In Minutes): Time spent day of discharge 42 minutes including direct patient care, medication reconciliation, documentation, review of labs and images, and coordination of care. Coding Level of Care Code 78101 INP/OBS DISCH >30 MIN Diagnoses Ureteritis due to infection N28.89 Recurrent UTI (urinary tract infection) N39.0 Hematuria R31.9 Chronic constipation K59.09"
--- NOTE | 2024-12-19 10:22 | Electrocardiogram Report ---
Test Reason : Blood Pressure : */* mmHG Vent. Rate : 64 BPM Atrial Rate : 64 BPM P-R Int : 146 ms QRS Dur : 74 ms QT Int : 422 ms P-R-T Axes : 23 6 29 degrees QTcB Int : 435 ms Normal sinus rhythm Normal ECG When compared with ECG of 22-Mar-2016 13:42, No significant change was found Confirmed by Griffin Dunlap ([id number]) on 12/19/2024 10:22:04 AM Referred By: REFERRED SELF Confirmed By: Griffin Dunlap
[2024-12-19 12:30] LABS: Chlam trach RNA(Genit,Ureth,Ur Not Detected (NotDetected); GC(Neis gon)RNA(Genit,Ureth,Ur Not Detected (NotDetected)
== END 2024-12-18 14:16 | disposition home or self-care (01) | DRG 690 ==
LOC: ED 14:22 → SUATTDRO 20:39 → 3E 20:39